=== PATIENT | male | born 1980 | race Caucasian/White ===

== ENCOUNTER 2016-05-18 15:46 | Emergency (ER) | payer MEDICARE ==
[2016-05-18 18:11] LABS: RED BLOOD COUNT 5.06 M/UL (4.20-5.50); WHITE BLOOD COUNT 10.8 K/UL (4.5-11.0)
[2016-05-18 18:29] LABS: BUN/CREATININE RATIO 14 (0-10)
== END 2016-05-18 19:46 | disposition home or self-care (01) ==
LOC: ER1 15:46
PROVIDERS: Student in an Organized Health Care Education/Training Program
DX: R10.13 Epigastric pain (principal); F17.210 Nicotine dependence, cigarettes, uncomplicated; Z87.442 Personal history of urinary calculi
CPT/HCPCS: 36415; 80053; 81001; 82150; 83690; 85025; 96374; 99284; C9113; J2270; J2405; Q9962

== ENCOUNTER 2016-10-20 10:12 | Emergency (ER) | payer MEDICARE ==
[2016-10-20 11:00] LABS: WHITE BLOOD COUNT 9.7 K/UL (4.5-11.0)
[2016-10-20 11:21] LABS: BUN/CREATININE RATIO 14 (0-10)
== END 2016-10-20 13:15 | disposition home or self-care (01) ==
LOC: ER1 10:12
PROVIDERS: Emergency Medicine
DX: R10.33 Periumbilical pain (principal); F17.200 Nicotine dependence, unspecified, uncomplicated; Z98.890 Other specified postprocedural states
CPT/HCPCS: 36415; 80053; 81001; 83690; 85025; 99284; J7050; Q9962